=== PATIENT | female | born 1975 | race Caucasian/White ===

== ENCOUNTER 2018-07-27 17:13 | Emergency (ER) | payer SELFPAY ==
[2018-07-27 17:19] VITALS: BMI 24.0
[2018-07-27] MEDS ORDERED: TORADOL10 MG PO (19:08)
[2018-07-27] MEDS ORDERED: KEFLEX500 MG PO (19:08)
[2018-07-27 19:35] VITALS: BP 157/104
== END 2018-07-27 19:35 | disposition home or self-care (01) ==
LOC: D.ER 17:13
DX: S01.84XA Puncture wound with foreign body of other part of head, initial encounter (principal); X58.XXXA Exposure to other specified factors, initial encounter; Y93.9 Activity, unspecified; Y92.89 Other specified places as the place of occurrence of the external cause